=== PATIENT | male | born 1940 | race Caucasian/White ===

== ENCOUNTER 2022-11-01 10:26 | Outpatient (CLI) | payer MEDICARE, OTHER, SELFPAY ==
[2022-11-01 13:05] LABS: Alanine Aminotransferase* 23 U/L (4-50); Albumin* 4.1 g/dL (3.3-5.0); Alkaline Phosphatase* 65 U/L (40-150); Aspartate Amino Transferase* 33 U/L (12-35); Bilirubin Total* 0.7 mg/dL (0.1-1.5); Blood Urea Nitrogen* 20 mg/dL (7-30); Calcium* 9.1 mg/dL (8.4-10.6); Carbon Dioxide* 23 mmol/L (20-32); Chloride* 105 mmol/L (96-114); Cholesterol* 183 mg/dL (90-199); Creatinine* 0.7 mg/dL (0.5-1.5); Estimated Glomerular Filt Rate 91 ml/min; Glucose* 89 mg/dL (60-115); HDL Cholesterol* 59 mg/dL (>=40); LDL Cholesterol Calculated 104 mg/dL (<100); Potassium* 4.6 mmol/L (3.6-5.1); Sodium* 139 mmol/L (135-149); Total Protein* 6.7 g/dL (6.0-8.3); Triglycerides* 99 mg/dL (40-149)
[2022-11-01 13:06] LABS: PSA Screen* 3.26 ng/mL (0.10-4.00)
== END 2022-11-01 10:27 | disposition home or self-care (01) ==
PROVIDERS: PCP Internal Medicine; Visit Provider Internal Medicine
DX: Z00.00 Encounter for general adult medical examination without abnormal findings (principal); N40.0 Benign prostatic hyperplasia without lower urinary tract symptoms; Z13.6 Encounter for screening for cardiovascular disorders; Z12.5 Encounter for screening for malignant neoplasm of prostate; Z13.9 Encounter for screening, unspecified
CPT/HCPCS: 80053; 80061; 84153

== ENCOUNTER 2023-11-10 08:42 | Outpatient (CLI) | payer MEDICARE, OTHER, SELFPAY ==
--- OUTSIDE RECORDS SUMMARY | 2023-11-11 07:31 | XMS_ITS | Clinical Summary ---
Author Name Unknown Organization [facility] Address [place], [place] [address] Care Team Providers Care Doctor Of Naturopathic Medicine Name Role Phone Ron Sarkar MD Primary Care Provider Allergies No known active allergies Medications Medication Sig Dispensed Refills Start Date End Date Status glucosamine-chondroiti n, 500-400 mg, (COSAMIN DS 500/400) 500-400 mg cap Take 1 capsule by mouth once daily. 0 10/25/2018 Active Social History Tobacco Use Types Packs/Day Years Used Date Smoking Tobacco: Never Smokeless Tobacco: Never Tobacco Cessation:Counseling Given: Yes Alcohol Use Standard Drinks/Week Comments Not Asked 0 (1 standard drink = 0.6 oz pur e alcohol) Sex and Gender Information Value Date Recorded Sex Assigned at Not on file Gender Identity Not on file Sexual Orientation Not on file Obstetrics History Last Filed Vital Signs Vital Sign Reading Time Taken Comments Blood Pressure 126/77 06/02/2022 10:08 AM CDT Pulse 61 06/02/2022 10:08 AM CDT Temperature 36.4 ??C (97.5 ??F) 10/28/2015 2:40 PM CS T Respiratory Rate 16 11/27/2008 1:45 PM MICA SIZER Oxygen Saturation 97% 06/02/2022 10:08 AM CDT Inhaled Oxygen Concentration - - Weight 82.8 kg (182 lb 9.6 oz) 06/02/2022 10:08 AM CDT Height 188 cm (6' 2) 11/27/2008 10:30 AM MICA SIZER Body Mass Index - - Plan of Treatment Health Maintenance Due Date Last Done Comments Tdap 1951 Depression screening for age 12+ 1950 BMI (ht and wt on same day) for age 18+ 1956 Tetanus booster 1958 Zoster (shingles) series for age 50+ (1 of 2) 1988 Medicare Wellness for age 65+ 2003 Pneumococcal series for age 65+ (1 of 1 - PCV) 2003 COVID-19 vaccine series (2022- season) 2023 01/08/2022, 07/21/2021, 12/06/2020, Additional history exists Influenza for age 65+ 06/10/2023 Medical Devices Implanted Type Area Linoleum Floor Layer Device Identifier Shelf Expiration Date Model / Serial / Lot Implnt Ambio Dry 2 2x3cm - [id number] Implanted:Qty: 1 on 11/27/2008 at [facility] Left: Eye MISCELLANEOUS MFR'S [id number] / [id number] 25-037 / Advance Directives Latest Code Status on File Code Status Date Activated Date Inactivated Comments Full Code 11/27/2008 10:28 AM 11/27/2008 3:57 PM Care Teams Doctor Of Naturopathic Medicine Relationship Specialty Start Date End Date Ron Sarakr MD [facility] - General 11/25/08
== END 2023-11-10 08:43 | disposition home or self-care (01) ==
LOC: NFLDREF 11-11 07:29
PROVIDERS: PCP Internal Medicine; Referring Provider Internal Medicine; Visit Provider Internal Medicine
DX: N40.0 Benign prostatic hyperplasia without lower urinary tract symptoms (principal); Z13.228 Encounter for screening for other metabolic disorders; Z13.6 Encounter for screening for cardiovascular disorders
CPT/HCPCS: 80053; 80061; G0103

== ENCOUNTER 2024-07-04 14:27 | Outpatient (CLI) | payer MEDICARE, OTHER, SELFPAY ==
--- OUTSIDE RECORDS SUMMARY | 2024-07-04 14:31 | XMS_ITS | Clinical Summary ---
Author Organization [facility] Address [place], [place] [address] Care Team Providers Care Cell Support Operator Name Role Phone Ron Sarkar MD Primary Care Provider + [phone] Allergies No known active allergies Medications Medication [...] T Respiratory Rate 16 11/27/2008 1:45 PM CHILD SUPPORT OFFICER Oxygen Saturation 97% 06/02/2022 10:08 AM CDT Inhaled Oxygen Concentration - - Weight 82.8 kg (182 lb 9.6 oz) 06/02/2022 10:08 AM CDT Height 188 cm (6' 2) 11/27/2008 10:30 AM CHILD SUPPORT OFFICER Body Mass Index - - Plan of Treatment Health Maintenance Due Date Last Done Comments Tdap 1949 Depression screening for age 12+ 1950 BMI (ht and wt on same day) for age 18+ 1956 Tetanus booster 1958 Zoster (shingles) series for age 50+ (1 of 2) 1988 RSV vaccine for adults or (1 - 1-dose 60+ series) 1998 Medicare Wellness for age 65+ 2003 Pneumococcal series for age 65+ (1 of 1 - PCV) 2003 COVID-19 vaccine series ( season) 2024 01/08/2022, 07/21/2021, 12/06/2020, Additional history exists Influenza for age 65+ 06/10/2024 Medical Devices Implanted Type Area Industrial Pipefitter Journeyman Device Identifier Shelf Expiration Date Model / Serial / Lot Implnt Ambio Dry 2 2x3cm - [id number] Implanted:Qty: 1 on 11/27/2008 at [facility] Left: Eye MISCELLANEOUS MFR'S [id number] / [id number] 25-160 / Advance Directives * Full Code (Latest Code Status on File) Date Activated Date Inactivated Comments 11/27/2008 10:28 AM 11/27/2008 3:57 PM Care Teams Cell Support Operator Relationship Specialty Start Date End Date Ron Sarkar MD PCP - General 11/25/08
== END 2024-07-04 14:28 | disposition home or self-care (01) ==
LOC: NFLDREF 14:28
PROVIDERS: PCP Internal Medicine; Visit Provider Internal Medicine
DX: R42 Dizziness and giddiness (principal)
CPT/HCPCS: 80053

== ENCOUNTER 2024-10-24 10:45 | Outpatient (RCR) | payer MEDICARE, OTHER, SELFPAY ==
--- NOTE | 2024-10-18 11:52 | PT.OPEX ---
Please sign the attached physical therapy evaluation. Thank you. PT [place] Outpatient Eval PT [facility] Outpatient Eval Start: 10/18/24 09:06 Freq: Status: Active Protocol: Document 10/18/24 09:07 TLQ (Rec: 10/18/24 11:19 TLQ [id number]) E-signed By Betty Yao DPT Physical Therapy Outpatient Evaluation Insurance Information Recert Due Date 01/16/25 Insurance Name Medicare B Medical Diagnosis Dizziness and giddiness R42 Treating Diagnosis Impaired balance R26.81 Impaired vestibular function H81.9 Referring MD Ron Sarkar MD Subjective Preferred Name Norm Subjective Norm states he had a bout of vertigo in June, felt dizzy getting up in the middle of the night, this lasted for about 3 nights. [place] unsteady when he was walking around. Often gets up 3-4 times a night to use the bathroom. June episode cleared on its own. About 5 nights ago he started to feel dizzy again when getting up at night. Dizziness is not consistently present but has had at least 3 episodes this week. Dizziness happens with getting out of bed (towards right side), lasts for a minute or two, feels line lying back down. Denies a room spinning sensation, but is walking around in the dark. Notices that he feels unstable when he goes on his daily walks around [place] pond with his . Denies any falls in the past 6 months. Recalls he had a cold about 3 months ago, denies any recent illness. Denies recent changes in hearing. PMHx: hearing loss, BPH, vision loss on L Date of Last Physician Visit 10/17/24 Current Work Status Retired Precautions Therapy Limitations/Systems Review Vision Objective Other/Pertinent Objective CERVICAL ROM WFL OCULOMOTOR SCREEN* *wears prescription lenses, partially impaired vision in L eye H-test: normal Saccades: normal Convergence: normal Cover-uncover test: normal Head thrust test: + L, - R OTHER ASSESSMENTS Coordination testing (finger to nose): normal Modified vertebral artery test : normal VOR: normal VOR cancellation: normal [place] Hallpike: - BL Horizontal roll test: - BL BALANCE/CTSIB Romberg eyes open firm surface : 30 seconds, min postural sway Romberg eyes closed firm surface: 26 seconds, min-mod postural sway Romberg eyes open foam surface : 7 seconds, mod AP postural sway Romberg eyes closed foam surface: 3 seconds, max postural sway, L lateral lean GAIT without A.D., wide CAMILO, min lateral postural sway 4-ITEM DGI 9/12 (<10/12 indicated increased risk of falls) Horizontal head turns (1) change in gait speed, lateral path deviation Vertical head turns (2) change in gait speed Gait on level surfaces (3) Changes in gait speed (3) Assessment Assessment/Impression Norm is an 85-year-old male who presents to physical therapy to address acute onset of vertigo. He reports dizziness and unsteady gait when getting out of bed to use the restroom at night, denies falls. Patient gets out of bed towards his right, denies dizziness with rolling towards his left, denies room spinning sensation. Denies dizziness during the day but does feel unsteady when walking around his house and outside. He denies recent infection/illness or acute change in hearing. Patient has impaired vision in his L eye which may have impacted today' s oculomotor exam. Cervical and oculomotor examination unremarkable, exception of positive head thrust toward the L indicating vestibular hypofunction. Somatosensory disintegration observed with CTSIB assessment, patient denies production of dizziness with assessment. Completed [place]-Hallpike and horizontal roll test, negative bilaterally for nystagmus or reproduction of patient symptoms. Patient was slow with transition for right [place]- Hallpike, will retest at upcoming visit as indicated. All examination findings were reviewed with the patient, education provided on differential causes of vertigo /dizziness symptoms in relation to their symptoms. Discussed benefits and goals of physical therapy; patient verbalized agreement with POC. Norm was instructed through an initial HEP to address balance deficits. Skilled physical therapy appropriate to reduce the frequency and severity of vertigo symptoms to improve safety with transitional movements and ADL 's. Primary Functional Limitations dizziness, impaired balance, unsteady gait, rolling toward R Plan of Care Rehabilitation Potential Good Physical Therapy Goals Therapy goals to be completed in 8-10 visits: - Patient will report resolution of dizziness with all positional changes for >7 consecutive days to improve safety with transfers. - Patient will display improved Romberg balance on foam surface with eyes closed >10 seconds with minimal sway to decrease fall risk when ambulating at night. - Patient will display improved 4-item DGI testing > 10/12 to decrease falls risk with dynamic gait tasks. Treatment Plan/Direct Interventions Canalith Repositioning,Gait Training,Manual Therapy, Neuromuscular Re-ed,Self-Care/ Home Management,Therapeutic Activities,Therapeutic Exercises Frequency/Duration 1x/week for 8-10 visits, decreasing frequency as able Patient Will Be Discharged From Therapy Completion of LTG(s),Skills Plateau,Independent w/HEP, Independently Progressing Evaluation Billing Untimed Code Treatment Minutes 55 Complexity Low Certification Information Initial Certification Date 10/18/24 Ending Certification Date 01/16/25 Provider Signature Required Yes Provider Signature Shows Agreement With POC & Medical Necessity Physician NPI Number Write NPI# Here Physician Comment/Change : Physician Signature & Date Requested Please Sign/Date Here
== END 2025-02-04 11:03 | disposition home or self-care (01) ==
PROVIDERS: PCP Internal Medicine; Visit Provider Internal Medicine
DX: H81.90 Unspecified disorder of vestibular function, unspecified ear (principal); R26.81 Unsteadiness on feet; Z51.89 Encounter for other specified aftercare
CPT/HCPCS: 97112; 97161

== ENCOUNTER 2025-07-29 09:54 | Emergency (ER) | payer MEDICARE, OTHER, SELFPAY ==
[2025-07-29] VITALS (23 sets, daily range): BP systolic 103–162; BP diastolic 75–106; PULSE 55–60; RESP 12–36; TEMP 36.1; O2SAT 97–99; BMI 24.4
--- NOTE | 2025-07-29 09:55 | ED.GENADULT ---
HPI - General Adult General Chief complaint: Neuro Symptoms/Altered Deficit Stated complaint: Stroke Time Seen by Provider: 07/29/25 09:54 History of Present Illness HPI narrative: This 85-year-old male went to clinic today and comes here because of suspicion of a stroke. A stroke code is initiated and I did see the patient immediately on arrival. I did do a quick neuro exam before going to CT imaging. The patient symptoms started last night. He feels that he is off balance when ambulating. He is not on any anticoagulants. He did not notice any facial asymmetry but his states that there is a slight droop on the left side of his face. Related Data Home Medications ?Medication ?Instructions ?Recorded ?Confirmed psyllium husk 3.4 gram/5.4 gram 1 tbsp PO ONCE 11/01/22 07/29/25 oral powder (Metamucil) zinc PO 1XD 01/11/23 07/29/25 Previous Rx's ?Medication ?Instructions ?Recorded meclizine 25 mg tablet 25 mg PO QID #20 tabs 07/29/25 Allergies Allergy/AdvReac Type Severity Reaction Status Date / Time No Known Drug Allergies Allergy Verified 07/29/25 09:29 Review of Systems Status of ROS: Reports: 10 or more systems reviewed and unremarkable except as noted in History and below Narrative: Constitutional: No fevers, no weight gain or loss. Eyes: No discharge. No vision changes. HENT: No congestion, no sore throat, no ear pain. Cardiovascular: No chest pain, no palpitations. Respiratory: No shortness of breath, no wheezes, no cough. Gastrointestinal: No abdominal pain, no vomiting, no diarrhea. Genitourinary: No dysuria, no hematuria. Musculoskeletal: Normal range of motion. Skin: No rashes, no pruritis. Neurological: No weakness, sensory change, speech change. He reports some ataxia. Endo/Heme/Allergies: No bruising or bleeding. No polydipsia. Pysch: no suicidality, no anxiety, no insomnia. All other systems reviewed and are negative. [facility] Medical History (Updated 07/29/25 @ 12:55 by Leonardo Chahal MD) Vertigo ?R42 - Dizziness and giddiness (ICD-10) Encounter for annual physical exam ?Z00.00 - Encounter for general adult medical examination without abnormal findings (ICD-10) Social History (Updated 11/14/23 @ 16:19 by Nava Magana ~ CTA) What is your current living situation?: I presently have a place to live Problems where you live: no known problems In the past 12 months, utilities in danger of being shut off: no In past 12 months, lack of transportation kept you from medical appts, meetings, work, or getting things needed for daily living: no In the past 12 mos, have been you worried that your food would run out before you had money to buy more?: never true In the past 12 mos, the food you bought just didn't last and you didn't have money to buy more?: never true Smoking Status: Never smoker How often does anyone, including family, friends and others, physically hurt you: never How often does anyone, including family, friends and others, insult or talk down to you: never How often does anyone, including family, friends and others, threaten you with harm: never How often does anyone, including family, friends and others, scream or curse at you: never Exam Narrative: Exam Narrative: Constitutional: Well-developed, well-nourished, no acute distress. HEENT: Normocephalic, atraumatic. Neck: Normal range of motion. Nontender. Supple. Heart: Regular. No murmurs. Normal rate. Intact distal pulses. Lungs: Clear to auscultation. No chest discomfort. No wheezes, rhonchi, or rales. Abdomen: Normal bowel sounds. Nontender. No rebound tenderness. Genitalia: Deferred. Back: No midline tenderness. Normal range of motion. Extremities: Normal range of motion. No injury. Skin: Intact. No rash. Warm. No erythema or pallor. Neurologic: No altered sensation. No weakness. Alert and oriented. Slight left-sided facial droop. Tongue is midline. Qzzerx-jk-elic is normal. No pronator drift. Methods Time Analyst strength is equal bilaterally. Able to raise each leg from the bed. Psychiatric: No suicidality. No anxiety or depression. No insomnia. Nursing notes and vitals signs are reviewed. Const: Vital Signs, click to edit/add: Vital Signs - 24 hr 07/29/25 10:07 07/29/25 10:08 07/29/25 10:09 Temperature 97 F L Pulse Rate 58 L 57 L Pulse Rate [Pulse Oximeter] 55 L Respiratory Rate 16 16 Blood Pressure 141/79 H Blood Pressure [Ri ght Upper Arm] 141/79 H Pulse Oximetry 97 99 98 Oxygen Delivery Me thod Room Air 07/29/25 10:13 07/29/25 10:15 07/29/25 11:17 Temperature Pulse Rate 55 L 55 L 55 L Pulse Rate [Pulse Oximeter] Respiratory Rate 16 16 Blood Pressure 147/77 H 156/75 H Blood Pressure [Ri ght Upper Arm] Pulse Oximetry 99 97 98 Oxygen Delivery Me thod 07/29/25 11:19 07/29/25 11:23 07/29/25 11:30 Temperature Pulse Rate 56 L Pulse Rate [Pulse Oximeter] Respiratory Rate 18 25 H 22 Blood Pressure 147/81 H Blood Pressure [Ri ght Upper Arm] Pulse Oximetry 97 Oxygen Delivery Me thod 07/29/25 11:32 07/29/25 11:42 07/29/25 11:45 Temperature Pulse Rate 60 59 L Pulse Rate [Pulse Oximeter] Respiratory Rate 23 19 17 Blood Pressure 135/84 158/84 H Blood Pressure [Ri ght Upper Arm] Pulse Oximetry 97 97 Oxygen Delivery Me thod 07/29/25 11:52 07/29/25 11:53 07/29/25 12:00 Temperature Pulse Rate 58 L Pulse Rate [Pulse Oximeter] Respiratory Rate 16 20 15 Blood Pressure 158/84 H Blood Pressure [Ri ght Upper Arm] Pulse Oximetry 98 Oxygen Delivery Me thod 07/29/25 12:02 07/29/25 12:03 07/29/25 12:12 Temperature Pulse Rate 60 Pulse Rate [Pulse Oximeter] Respiratory Rate 15 14 14 Blood Pressure 135/83 162/85 H Blood Pressure [Ri ght Upper Arm] Pulse Oximetry 97 Oxygen Delivery Me thod 07/29/25 12:15 07/29/25 12:22 07/29/25 12:30 Temperature Pulse Rate 56 L Pulse Rate [Pulse Oximeter] Respiratory Rate 15 12 13 Blood Pressure 135/106 H Blood Pressure [Ri ght Upper Arm] Pulse Oximetry 98 Oxygen Delivery Me thod 07/29/25 12:31 07/29/25 12:34 Temperature Pulse Rate 60 60 Pulse Rate [Pulse Oximeter] Respiratory Rate 13 36 H Blood Pressure 103/88 121/76 Blood Pressure [Ri ght Upper Arm] Pulse Oximetry 98 97 Oxygen Delivery Me thod Course Vital Signs Vital signs: Initial Vital Signs Pulse Rate 58 L 07/29/25 10:07 Respiratory Rate 16 07/29/25 10:07 Blood Pressure 141/79 H 07/29/25 10:07 Blood Pressure Mean 99 07/29/25 10:07 Pulse Oximetry 97 07/29/25 10:07 Vital Signs Pulse Rate 58 L 07/29/25 10:07 Respiratory Rate 16 07/29/25 10:07 Blood Pressure 141/79 H 07/29/25 10:07 Pulse Oximetry 97 07/29/25 10:07 Temperature 97 F L 07/29/25 10:09 Pulse Rate 60 07/29/25 12:34 Respiratory Rate 36 H 07/29/25 12:34 Blood Pressure 121/76 07/29/25 12:34 Pulse Oximetry 97 07/29/25 12:34 Oxygen Delivery Method Room Air 07/29/25 10:09 Medications Administered Medications: Discontinued Medications Generic Name Dose Route Start Last Admin Trade Name Alpa PRN Reason Stop Dose Admin Meclizine HCl 25 mg 07/29/25 12:16 07/29/25 12:26 Meclizine Hcl 25 Mg Tablet PO 07/29/25 12:17 25 mg ONCE ONE Administration Medical Decision Making MDM Narrative Medical decision making narrative: This patient comes in from clinic with suspicion of a stroke. He went to sleep at about 10:00 a.m. last night and that was his last known time without symptoms. He woke this morning with primary symptoms of feeling off balance with some sense of movement. It does appear that he may have a slight droop in his left face. His neurologic exam is otherwise completely normal. A stroke code was initiated and I did talk to Dr. Mendoza who recommended CTA of head and neck and MRI. These tests were performed in a returned with no acute findings. The patient's symptoms are likely due to a peripheral vertigo process. He did receive an oral dose of meclizine and is able to get up and ambulate without difficulty. He is okay to be discharged home. Lab Data Labs: Lab Results 07/29/25 Range/Units 10:15 WBC 4.42 L (4.50-11.00) K/uL RBC 4.65 (4.30-5.90) m/uL Hgb 14.4 (13.5-17.5) gm/dL Hct 42.8 (37.0-53.0) % MCV 92 (80-100) fL MCH 31 (26-34) pg MCHC 34 (32-36) gm/dL RDW Coeff of Benny 12.8 (11.5-15.5) % Plt Count 148 (140-440) K/uL Neut % (Auto) 76.5 H (42.0-72.0) % Lymph % (Auto) 14.7 L (20-44) % [place] % (Auto) 7.5 (0.0-11.0) % Eos % (Auto) 0.9 (0.0-7.0) % Baso % (Auto) 0.2 (0.0-3.0) % Neut # (Auto) 3.40 (1.7-7.0) K/uL Lymph # (Auto) 0.60 L (0.90-2.90) K/uL [place] # (Auto) 0.30 (0.00-0.90) K/UL Eos # (Auto) 0.00 (0.00-0.50) K/uL Baso # (Auto) 0.00 (0.00-0.30) K/uL Abs Immat Gran (auto) 0.00 (0.00-0.30) K/uL Imm/Tot Granulo (auto) 0.2 % Sodium 132 L (135-149) mmol/L Potassium 3.9 (3.6-5.1) mmol/L Chloride 100 (96-114) mmol/L Carbon Dioxide 27 (20-32) mmol/L Anion Gap 5 L (7-15) mEq/L BUN 20 (7-30) mg/dL Creatinine 0.8 (0.5-1.5) mg/dL Estimated Creat Clear 58.82 Estimated GFR 86 ml/min Glucose 141 H (60-115) mg/dL Calcium 8.8 (8.4-10.6) mg/dL ECG Data Attestation: I personally reviewed and interpreted this ECG as follows: Interpretation: Sinus bradycardia. Rate is 53 beats per minute. There are no specific ST or T-wave abnormalities. Discharge Plan Discharge Clinical Impression: Acute vestibular neuritis Patient Disposition: Home, Self-Care Condition: Improved Additional Instructions: Use meclizine as needed and directed. Activity as tolerated. Follow up with MD return if worsening. Prescriptions: New meclizine 25 mg tablet 25 mg PO QID Qty: 20 0RF No Action Metamucil 3.4 gram/5.4 gram powder 1 tbsp PO ONCE Rx Instructions: mix into at least 8 oz of water or juice before administering zinc 25 mg PO 1XD Follow Up/Referrals: Ron Sarkar MD [Primary Care Provider, Internal Medicine] Stand Alone Forms: Method Info Instructions
--- NOTE | 2025-07-29 09:56 | CRLHL7_ITS ---
For Patients: As a result of the Century Cures Act, medical imaging exams and procedure reports are released immediately into your electronic medical record. You may view this report before your referring provider. If you have questions, please contact your health care provider. INDICATION: DIZZINESS, ATAXIA, LEFT FACIAL DROOP COMPARISON: CT July 23, 2015 TECHNIQUE: CT of the head without contrast. FINDINGS: Brain Parenchyma: Global cortical involutional changes. No acute infarct, acute intracranial hemorrhage, mass effect, or midline shift. Periventricular and supraventricular white matter hypodensity, suggestive of chronic microvascular ischemic changes. Ventricles: Stable ventricular enlargement, commensurate with the degree of cortical involutional changes and sulcal prominence. Extra-axial Spaces: No abnormal fluid collection. Paranasal sinuses: No significant mucosal thickening. Likely small mucous retention cysts in the left maxillary sinus. Orbits: Unremarkable Mastoid Sinuses: Unremarkable Cranium: No acute fracture Soft tissues: Unremarkable IMPRESSION: No CT evidence of an acute intracranial process. Please note that all CT scans at this facility use dose modulation, iterative reconstruction, and/or weight-based dosing when appropriate to reduce radiation dose to as low as reasonably achievable. Dictated by Jack Cuevas MD @ 07/29/2025 10:19:21 AM (Electronically Signed)
--- NOTE | 2025-07-29 10:01 | CT_ITS ---
Patient: JAYSHREE WATTS Facility:?[facility] Patient ID:?[id number] Site Patient ID:?[id number]. Site :?[id number] Study:?CT-Head Angio CODE STROKE - W/ 95CC [id number] 10:33:00 AM Ordering Physician:Eva Patterson Final Report: DATE: 07/29/2025 CLINICAL HISTORY: Patient with ataxia. TECHNIQUE: Standard helical CT image acquisition through the head and neck was performed after intravenous contrast bolus enhancement. 2D and 3D MIP images for post- processing were performed and interpreted on an independent workstation and 3D images were permanently archived. COMPARISON: CT same day. FINDINGS: The origins of the great vessels from the aortic arch are patent. The origin of the right vertebral artery is patent. The origin of the left vertebral artery is patent. The common carotid arteries are patent There is no stenosis at the origin of the right internal carotid artery. There is no stenosis at the origin of the left internal carotid artery. The rest of the cervical segments of the internal carotid arteries are patent up to their intracranial segments. The intracranial segments of the internal carotid arteries demonstrate mild intracranial atherosclerosis. The left vertebral artery is dominant. The cervical segments of the vertebral arteries are patent. The intracranial segments of the vertebral arteries are patent. The middle cerebral arteries are normal without aneurysm or proximal occlusion identified. The anterior cerebral arteries are normal without aneurysm or proximal occlusion identified. The anterior communicating artery is well visualized and appears normal. The basilar artery is normal without aneurysm or occlusion. The posterior cerebral arteries are normal without aneurysm or proximal occlusion. There is normal opacification of major intracranial venous structures. The visualized lung apices are unremarkable The thyroid gland is unremarkable. The soft tissues of the neck are unremarkable. There are degenerative changes in the cervical spine. IMPRESSION: 1. No proximal intracranial large vessel occlusion. 2. Mild intracranial atherosclerosis in the carotid siphons bilaterally. 3. Patent cervical vasculature. Please note that all CT scans at this facility use dose modulation, iterative reconstruction, and/or weight-based dosing when appropriate to reduce radiation dose to as low as reasonably achievable. Dictated by David Monsivais MD @ 07/29/2025 3:42:37 PM (Electronic Signature)
--- NOTE | 2025-07-29 10:02 | CT_ITS ---
Patient: JAYSHREE WATTS Facility:?[facility] Patient ID:?[id number] Site Patient ID:?[id number]. Site :?[id number] Study:?CT-Neck Angio CODE STROKE - W/ 95CC [id number] 10:32:55 AM Ordering Physician:Eva Patterson Final Report: DATE: 07/29/2025 CLINICAL HISTORY: Patient with ataxia. TECHNIQUE: Standard helical CT image acquisition through the head and neck was performed after intravenous contrast bolus enhancement. 2D and 3D MIP images for post- processing were performed and interpreted on an independent workstation and 3D images were permanently archived. COMPARISON: CT same day. FINDINGS: The origins of the great vessels from the aortic arch are patent. The origin of the right vertebral artery is patent. The origin of the left vertebral artery is patent. The common carotid arteries are patent There is no stenosis at the origin of the right internal carotid artery. There is no stenosis at the origin of the left internal carotid artery. The rest of the cervical segments of the internal carotid arteries are patent up to their intracranial segments. The intracranial segments of the internal carotid arteries demonstrate mild intracranial atherosclerosis. The left vertebral artery is dominant. The cervical segments of the vertebral arteries are patent. The intracranial segments of the vertebral arteries are patent. The middle cerebral arteries are normal without aneurysm or proximal occlusion identified. The anterior cerebral arteries are normal without aneurysm or proximal occlusion identified. The anterior communicating artery is well visualized and appears normal. The basilar artery is normal without aneurysm or occlusion. The posterior cerebral arteries are normal without aneurysm or proximal occlusion. There is normal opacification of major intracranial venous structures. The visualized lung apices are unremarkable The thyroid gland is unremarkable. The soft tissues of the neck are unremarkable. There are degenerative changes in the cervical spine. IMPRESSION: 1. No proximal intracranial large vessel occlusion. 2. Mild intracranial atherosclerosis in the carotid siphons bilaterally. 3. Patent cervical vasculature. Please note that all CT scans at this facility use dose modulation, iterative reconstruction, and/or weight-based dosing when appropriate to reduce radiation dose to as low as reasonably achievable. Dictated by David Monsivais MD @ 07/29/2025 3:42:02 PM (Electronic Signature)
--- NOTE | 2025-07-29 10:27 | CRLHL7_ITS ---
For Patients: As a result of the Century Cures Act, medical imaging exams and procedure reports are released immediately into your electronic medical record. You may view this report before your referring provider. If you have questions, please contact your health care provider. Indication: Ataxia. Technique: Multiplanar, multisequence MRI of the brain was performed without intravenous contrast. Comparison: CT head 07/29/2025. Findings: Moderate thinning of the corpus callosum. The pituitary gland and clivus appear intact. Moderate degenerative change visualized upper cervical spine. There is no restricted diffusion. No intracranial hemorrhage. The ventricles are proportionate to the cerebral sulci. The 4th ventricle appears midline. The basal cisterns appear patent. No abnormal extra-axial fluid collection identified. Moderate parenchymal volume loss. Mild scattered T2 FLAIR hyperintense foci within the subcortical and periventricular white matter, favored to represent chronic ischemic microvascular disease. There is no intracranial mass, abnormal mass-effect or midline shift identified. Major intracranial vascular flow voids appear grossly intact. Thinning of the ocular lenses. [id number] paranasal sinus mucosal disease. Impression: 1. No acute intracranial process. 2. Moderate parenchymal volume loss, with mild scattered chronic ischemic microvascular disease. Dictated by Manas Caruso MD @ 07/29/2025 11:09:04 AM (Electronically Signed)
[2025-07-29 10:35] LABS: Hematocrit* 42.8 % (37.0-53.0); Hemoglobin* 14.4 gm/dL (13.5-17.5); Immature Granulocytes Pct Auto 0.2 %; Mean Corpuscular HGB Conc 34 gm/dL (32-36); Mean Corpuscular Hemoglobin 31 pg (26-34); Mean Corpuscular Volume 92 fL (80-100); RDW Coefficient of Variation % 12.8 % (11.5-15.5); Red Blood Count* 4.65 m/uL (4.30-5.90); White Blood Count* 4.42 K/uL (4.50-11.00)
[2025-07-29 10:51] LABS: Chloride* 100 mmol/L (96-114)
[2025-07-29 10:52] LABS: Potassium* 3.9 mmol/L (3.6-5.1); Sodium* 132 mmol/L (135-149)
[2025-07-29 10:53] LABS: Immature Granulocytes Abs Auto 0.00 K/uL (0.00-0.30); Lymphocytes Absolute Auto 0.60 K/uL (0.90-2.90); Slide Review Reflex No
[2025-07-29 10:55] LABS: Anion Gap 5 mEq/L (7-15); Blood Urea Nitrogen* 20 mg/dL (7-30); Calcium* 8.8 mg/dL (8.4-10.6); Carbon Dioxide* 27 mmol/L (20-32); Creatinine* 0.8 mg/dL (0.5-1.5); Est. Creatinine Clearance* 58.82; Estimated Glomerular Filt Rate 86 ml/min; Glucose* 141 mg/dL (60-115)
[2025-07-29] MEDS: MECLIZINE HCL 25 MG TABLET PO (12:26)
== END 2025-07-29 13:11 | disposition home or self-care (01) ==
PROVIDERS: Emergency Provider Emergency Medicine Emergency Medical Services; PCP Internal Medicine
DX: H81.23 Vestibular neuronitis, bilateral (principal)
CPT/HCPCS: 36415; 70450; 70496; 70498; 70551; 80048; 82565; 85025; 93005; 94761; 99284; 99285; A9270; Q9967

== ENCOUNTER 2025-09-27 11:00 | Outpatient (RCR) | payer MEDICARE, OTHER, SELFPAY ==
--- NOTE | 2025-08-20 17:14 | PT.OPEX ---
[facility] Eval PT [facility] Outpatient Eval Start: 08/20/25 12:58 Freq: Status: Active Protocol: Document 08/20/25 12:58 HLA (Rec: 08/20/25 17:09 HLA [id number]) E-signed By Litzy Laguerre, PT, DPT Physical Therapy Outpatient Evaluation Insurance Information Recert Due Date 11/17/25 Insurance Name Medicare B Medical Diagnosis unsteady gt, imbalance, recent acute vestibular neuritis Treating Diagnosis unsteady gt, imbalance, recent acute vestibular neuritis Referring MD Sarkar Subjective Preferred Name Norm Subjective Pt reports having some feelings of vertigo/dizziness intermittently which took him to the [facility] ED 08/03/25. He was prescribed meclizine, took x 1 day and his symptoms went away. He had seen his PCP that day with some concerns of stroke and indicates that was ruled out. Date of Last 08/03/25 Physician Visit Current Work Status Retired Precautions Weight Bearing Weight Bear as Tolerated Status Therapy Limitations/ Not Limited Systems Review Objective Range of Motion neck SB R 0-10, SB L 0-25, rotation 0-50 L, 0-60 R UEs full LEs full Strength UEs 5/5 LEs 5/5 Palpation mild R knee discomfort behind R Knee and on palpation of patella Balance & Gait Feels unsteady-Amb with wide base, R knee varus, shortened steps, fwd head, mild flex at hips. Amb outdoors with walking stick. Stairs step to pattern Posture significant forward head Sensation/Reflexes intact to light touch Functional Test Saccades negative Performed & Score Convergence negative +head thrust indicating vestibular hypofunction Bonny Hallpike negative L/R coordination screen wnl Assessment Assessment/ 85-year-old male with self-report of episodes of ' Impression vertigo' when lying down at night and then when he gets up he feels unsteady on his feet. He lies on his R side, roll to his left to get out of bed. He reports holding onto furniture and then when he lies down it goes away. Doesn't occur during the day. Doesn't happen every day-but the unsteadiness has been happening more and when he walks he tends to flail his arms around with speed or fatigue per his . Denies dizziness, spinning. Had been to [facility] ED 08/03 with r/o of stroke, dx of acute vestibular neuritis and was given meclizine. He took it 1 day and sx resolved. Pt presents with stiffness of neck, fwd head, negative BPPV screen, but testing shows likely vestibular hypofunction. Struggles with Romberg stance, SLS and tandem stance. Amb with wide base, R knee varus, shortened steps, fwd head, mild flex at hips. We discussed starting with posture, neck ROM, standing balance and progressing to further balance tasks, gt training with goal to improve his overall safety with amb. Primary Functional impaired neck ROM, impaired balance, impaired amb Limitations Plan of Care Rehabilitation Good Potential Rehabilitation Access Code: [email or web address] Comments URL: [email or web address] Date: 08/20/2025 Prepared by: Litzy Laguerre Exercises - Seated Cervical Rotation AROM - 1 x daily - 7 x weekly - 3 sets - 10 reps - Seated Cervical Sidebending AROM - 1 x daily - 7 x weekly - 3 sets - 10 reps - Seated Passive Cervical Retraction - 1 x daily - 7 x weekly - 3 sets - 10 reps - Narrow Stance with Counter Support - 1 x daily - 7 x weekly - 1 sets - 3 reps - 20 hold - Single leg stance at counter with knee bend/extend - 1 x daily - 7 x weekly - 1 sets - 3 reps - 20 hold - Standing Tandem Balance with Counter Support - 1 x daily - 7 x weekly - 1 sets - 3 reps - 20 hold - Wall Danielson - 1 x daily - 7 x weekly - 1 sets - 10 reps - 5 hold Physical Therapy Within 6-8 weeks Goals 1. Pt will remain free of falls during therapy intervention period. 2. Pt will score in low fall risk range on 2 of 3 balance tests. 3. Pt will be independent in-home ex program to promote strength and balance and to reduce fall risk. 4. Pt will amb 500 feet with least restrictive device safely and independently for community mobility. Coordination/ Referral Source,Patient Caregiver Communication With Treatment Plan/ Electrical Stimulation,Gait Training,Heat,Ice/Cold/ Direct Interventions Vasopneumatic,Iontophoresis,Joint Mobilization,Manual Therapy,Neuromuscular Re-ed,Self-Care/Home Management, Therapeutic Activities,Therapeutic Exercises Frequency/Duration weekly x 6-8 weeks Patient Will Be Completion of LTG(s),Skills Plateau,Independent w/HEP, Discharged From Independently Progressing Therapy Evaluation Billing Untimed Code 25 Treatment Minutes PT Eval No Charge No Complexity Low Certification Information Initial 08/20/25 Certification Date Ending Certification 11/17/25 Date Provider Signature Yes Required Provider Signature POC & Medical Necessity Shows Agreement With Physician NPI Number Write NPI# Here Physician Comment/ : Change Physician Signature Please Sign/Date Here & Date Requested
== END 2025-09-27 11:45 | disposition home or self-care (01) ==
PROVIDERS: PCP Internal Medicine; Visit Provider Internal Medicine
DX: R26.81 Unsteadiness on feet (principal); Z51.89 Encounter for other specified aftercare
CPT/HCPCS: 97110; 97116; 97161